=== PATIENT | male | born 1980 | race Caucasian/White ===

== ENCOUNTER 2020-07-11 01:11 | Emergency (ER) | payer SELFPAY ==
[~2020-07-11] VITALS: Ht 170.2 cm; Wt 65.8 kg
--- NOTE | 2020-07-11 01:20 | NUR ---
Dr Dawson at bedside for MSE.
[2020-07-11] MEDS ORDERED: LORAZEPAM 2 MG/1 ML VIAL ONE (01:29)
[2020-07-11] MEDS: IV NORMAL SALINE 1000 ML BAG IV ONE (01:40)
[2020-07-11] MEDS: LORAZEPAM 2 MG/1 ML VIAL IV ONE (01:40)
[2020-07-11 01:44] LABS: BASOPHILS # (AUTO) 0.1 K/uL (0.0-8.0); EOSINOPHILS # (AUTO) 0.6 K/uL (0.0-0.7); EOSINOPHILS % (AUTO) 6.6 % (0.0-7.0); HEMATOCRIT 41.2 % (36.7-47.1); HEMOGLOBIN 14.6 g/dL (12.5-16.3); LYMPHOCYTES # (AUTO) 4.6 K/uL (20.0-40.0); LYMPHOCYTES % (AUTO) 51.4 % (20.5-51.5); MEAN CORPUSCULAR HEMOGLOBIN 30.9 uug (23.8-33.4); MEAN CORPUSCULAR HGB CONC 36 g/dL (32.5-36.3); MONOCYTES # (AUTO) 0.6 K/uL (2.0-10.0); MONOCYTES % (AUTO) 6.4 % (0.0-11.0); NEUTROPHILS # (AUTO) 3.1 K/uL (1.8-8.9); NEUTROPHILS % (AUTO) 34.6 % (38.5-71.5); PLATELET COUNT (AUTO) 278 K/uL (152-348); RED BLOOD CELL COUNT(AUTO) 4.73 MIL/uL (4.06-5.63)
[2020-07-11 01:47] LABS: POTASSIUM 2.8 mmol/L (3.5-5.1)
[2020-07-11] MEDS: POTASSIUM BICARBONATE/CIT AC 25 MEQ TABLET.EFF PO ONE (01:50)
[2020-07-11 01:52] LABS: BILIRUBIN,DIRECT 0.1 mg/dL (0.0-0.2); BILIRUBIN,TOTAL 0.4 mg/dL (0.2-1.0); TOTAL PROTEIN, SERUM 7.6 g/dL (6.4-8.2)
[2020-07-11] MEDS: POTASSIUM CHLORIDE 50 ML IV SCH (02:00)
[2020-07-11] MEDS ORDERED: POTASSIUM CHLORIDE 50 ML ONE (02:00)
--- NOTE | 2020-07-11 02:30 | NUR ---
Pt maybe cleared for DC once awake, alert and fully oriented. Will monitor vital signs while patient is asleep and lethargic.
--- NOTE | 2020-07-11 06:57 | NUR ---
Pt is now fully awake, alert and oriented. Ambulates to bathroom with steady gait. VS stable overnight as recorded. Written and verbal after care instructions given. Patient verbalizes understanding of instructions. Stressed follow up or return to ER for worsening s/s. Patient cleared for discharged to home in stable condition. At this time, patient is waiting for a ride out of the facility.
[2020-07-11 07:13] VITALS: BP 109/72
--- NOTE | 2020-07-11 08:29 | NUR ---
Patient's ride is here. Patient left ER stable condition & steady gait.
== END 2020-07-11 08:31 | disposition home or self-care (01) ==
LOC: ER 01:24
DX: T40.7X1A Poisoning by cannabis (derivatives), accidental (unintentional), initial encounter (principal); F41.9 Anxiety disorder, unspecified; Y92.039 Unspecified place in apartment as the place of occurrence of the external cause; E87.6 Hypokalemia; R03.0 Elevated blood-pressure reading, without diagnosis of hypertension
CPT/HCPCS: 36415; 80048; 80076; 83735; 85025; 96361; 96374; 99285; J2060; J3480; A4663; J7030